=== PATIENT | male | born 1960 | race Caucasian/White ===

== ENCOUNTER 2017-02-06 12:55 | Emergency (ER) | payer SELFPAY ==
[~2017-02-06] VITALS: Ht 165.1 cm; Wt 61.5 kg
[2017-02-06] MEDS ORDERED: INSLAN SQ (13:06)
[2017-02-06] MEDS ORDERED: INSREG SQ (13:06)
[2017-02-06 13:12] LABS: GLUCOSE,POINT OF CARE 354 MG/DL (70-110)
[2017-02-06] MEDS ORDERED: CEFTAROLINE 600 MG/D5W 250 ML IV ONE (14:30)
[2017-02-06] MEDS ORDERED: INSULIN REGULAR, HUMAN 100 UNITS/ML IVP ONE (14:30)
[2017-02-06] MEDS ORDERED: SODIUM CHLORIDE 0.9% 1,000 ML IV ONE (14:30)
[2017-02-06 14:53] LABS: BASOPHILS % (AUTO) 0.8 % (0.0-2.0); EOSINOPHILS % (AUTO) 0.6 % (1.0-6.0); HEMATOCRIT 46.2 % (41-53); HEMOGLOBIN 15.3 g/dL (13.5-17.5); LYMPHOCYTES # (AUTO) 1.9 K/uL (1.0-4.8); LYMPHOCYTES % (AUTO) 16.2 % (22.0-44.0); MEAN CORPUSCULAR HGB CONC 33.1 G/dL (31.0-37.0); MEAN CORPUSCULAR VOLUME 94 fL (80-100); MONOCYTES # (AUTO) 0.5 K/uL (0.1-1.0); MONOCYTES % (AUTO) 4.6 % (2.0-9.0); NEUTROPHILS # (AUTO) 9.1 K/uL (1.8-7.7); NEUTROPHILS % (AUTO) 77.8 % (40.0-70.0); PLATELET COUNT (AUTO) 236 K/uL (150-450); RED BLOOD CELL COUNT(AUTO) 4.94 MIL/uL (4.50-5.90); RED CELL DISTRIBUTION WIDTH 13.4 % (11.5-14.5); WHITE BLOOD COUNT (AUTO) 11.7 K/uL (4.5-11.0)
[2017-02-06 15:05] LABS: ANION GAP 7 mmol/L (8-16); CALCIUM, TOTAL 8.6 mg/dL (8.8-10.5); CARBON DIOXIDE 30 mmol/L (22-29); CHLORIDE 97 mmol/L (98-107); CREATININE 0.93 mg/dL (0.60-1.30); GLOMERULAR FILTR. RATE CALC > 60 mL/min (>60); POTASSIUM 3.9 mmol/L (3.5-5.1); SODIUM SERUM 134 mmol/L (136-145); UREA NITROGEN, BLOOD 15 mg/dL (7-18)
[2017-02-06 15:11] LABS: ALANINE AMINOTRANSFERASE 52 U/L (12-78); ALBUMIN 3.1 g/dL (3.4-5.0); ASPARTATE AMINOTRANSFERASE 22 U/L (15-37); BILIRUBIN,TOTAL 0.7 mg/dL (0.1-1.0); TOTAL PROTEIN, SERUM 7.5 g/dL (6.4-8.2)
[2017-02-06 15:37] LABS: GLUCOSE,POINT OF CARE 341 MG/DL (70-110)
[2017-02-06 15:47] LABS: APPEARANCE,URINE CLEAR (CLEAR); GLUCOSE, URINE (UA) >=1000 mg/dL (NEGATIVE); KETONES,URINE NEGATIVE (NEGATIVE); LEUKOCYTE ESTERASE ,URINE NEGATIVE (NEGATIVE); OCCULT BLOOD,URINE NEGATIVE (NEGATIVE); PROTEIN,URINE NEGATIVE (NEGATIVE)
[2017-02-06 15:55] LABS: ADD UA MICROSCOPIC YES; RBC,URINE 0-2 /HPF (0-2)
[2017-02-06 15:56] LABS: SQUAMOUS EPITHELIAL CELL,UR Rare /LPF (None Seen)
[2017-02-06 16:21] LABS: GLUCOSE,POINT OF CARE 244 MG/DL (70-110)
[2017-02-06 16:42] VITALS: BP 147/82
== END 2017-02-06 16:50 | disposition home or self-care (01) ==
LOC: EMS 12:58
DX: L03.116 Cellulitis of left lower limb (principal); E11.65 Type 2 diabetes mellitus with hyperglycemia; F15.10 Other stimulant abuse, uncomplicated; F12.90 Cannabis use, unspecified, uncomplicated; F17.210 Nicotine dependence, cigarettes, uncomplicated; E11.9 Type 2 diabetes mellitus without complications; Z79.4 Long term (current) use of insulin; Z91.14 Patient's other noncompliance with medication regimen
CPT/HCPCS: 36415; 80053; 80307; 81001; 82948; 82962; 85025; 87040; 96365; 96375; 99285; 99406; J0712; J1815; J7030

== ENCOUNTER 2021-02-22 16:59 | Emergency (ER) | payer MEDICAID ==
[~2021-02-22] VITALS: Ht 170.2 cm; Wt 61.4 kg
[~2021-02-22 16:59] MED LIST: DOXY-354 PO; INSLAN SQ; INSREG SQ
[2021-02-22 17:08] VITALS: BP 168/93
[2021-02-22 17:24] LABS: GLUCOSE,POINT OF CARE 549 MG/DL (70-110)
== END 2021-02-22 18:25 | disposition left against medical advice (07) ==
LOC: EMS 17:04
DX: Z48.00 Encounter for change or removal of nonsurgical wound dressing (principal); Z53.21 Procedure and treatment not carried out due to patient leaving prior to being seen by health care provider
CPT/HCPCS: 82962

== ENCOUNTER 2021-08-19 15:15 | Emergency (ER) | payer MEDICAID ==
[~2021-08-19] VITALS: Ht 167.6 cm; Wt 63.6 kg
[2021-08-19 16:21] VITALS: BP 126/70
[2021-08-19] MEDS ORDERED: ACETAMINOPHEN 500 MG TABLET PO ONE (16:45)
[2021-08-19] MEDS ORDERED: DOXYCYCLINE HYCLATE 100 MG TABLET PO ONE (16:45)
== END 2021-08-19 17:15 | disposition home or self-care (01) ==
LOC: EMS 15:20
DX: L03.116 Cellulitis of left lower limb (principal); E11.9 Type 2 diabetes mellitus without complications; F12.90 Cannabis use, unspecified, uncomplicated; F15.90 Other stimulant use, unspecified, uncomplicated; F17.210 Nicotine dependence, cigarettes, uncomplicated; Z79.899 Other long term (current) drug therapy; Z79.4 Long term (current) use of insulin
CPT/HCPCS: 99283

== ENCOUNTER 2021-09-01 17:39 | Inpatient (IN) | payer MEDICAID ==
[~2021-09-01] VITALS: Ht 167.6 cm; Wt 72.0 kg
[2021-09-01 18:16] LABS: GLUCOMETER DEV NAME(LOC) ERT.5; GLUCOSE,POINT OF CARE 374 MG/DL (70-110)
[2021-09-01] MEDS ORDERED: 0.9% SODIUM CHLORIDE 10 ML SYRINGE IVP PRN (18:45)
[2021-09-01] MEDS ORDERED: OxyCODONE HCL/ACETAMINOPHEN 10-325 MG TABLET PO ONE (18:45)
[2021-09-01] MEDS ORDERED: SODIUM CHLORIDE 0.9% 1,750 ML IV ONE (18:45)
[2021-09-01 19:05] LABS: BASOPHILS % (AUTO) 0.5 % (0.0-2.0); EOSINOPHILS % (AUTO) 0.2 % (1.0-6.0); HEMATOCRIT 43.8 % (41-53); HEMOGLOBIN 14.1 g/dL (13.5-17.5); LYMPHOCYTES # (AUTO) 1.2 K/uL (1.0-4.8); LYMPHOCYTES % (AUTO) 11.7 % (22.0-44.0); MEAN CORPUSCULAR HEMOGLOBIN 31.3 pg (26.0-34.0); MEAN CORPUSCULAR HGB CONC 32.1 G/dL (31.0-37.0); MEAN CORPUSCULAR VOLUME 97 fL (80-100); MONOCYTES # (AUTO) 0.3 K/uL (0.1-1.0); MONOCYTES % (AUTO) 2.5 % (2.0-9.0); NEUTROPHILS # (AUTO) 8.9 K/uL (1.8-7.7); NEUTROPHILS % (AUTO) 85.1 % (40.0-70.0); PLATELET COUNT (AUTO) 386 K/uL (150-450); RED BLOOD CELL COUNT(AUTO) 4.49 MIL/uL (4.50-5.90); RED CELL DISTRIBUTION WIDTH 16.2 % (11.5-14.5)
[2021-09-01 19:16] LABS: INR 1.1 (0.9-1.1); PROTHROMBIN TIME 11.4 SEC (9.4-11.6)
[2021-09-01 19:25] LABS: LACTIC ACID 1.6 mmol/L (0.4-2.0)
[2021-09-01 19:38] LABS: ALANINE AMINOTRANSFERASE 29 U/L (12-78); ALBUMIN 2.7 g/dL (3.4-5.0); ALKALINE PHOSPHATASE 118 U/L (46-116); ANION GAP 5 mmol/L (8-16); ASPARTATE AMINOTRANSFERASE 27 U/L (15-37); BILIRUBIN,TOTAL 0.6 mg/dL (0.1-1.0); CALCIUM, TOTAL 8.4 mg/dL (8.8-10.5); CARBON DIOXIDE 31 mmol/L (22-29); CHLORIDE 101 mmol/L (98-107); CREATINE KINASE, TOTAL ONLY 83 U/L (39-308); CREATININE 0.97 mg/dL (0.60-1.30); GLOMERULAR FILTR. RATE CALC > 60 mL/min (>60); POTASSIUM 5.1 mmol/L (3.5-5.1); SODIUM SERUM 137 mmol/L (136-145); TOTAL PROTEIN, SERUM 8.4 g/dL (6.4-8.2); UREA NITROGEN, BLOOD 16 mg/dL (7-18)
[2021-09-01 19:40] LABS: GLUCOSE,RANDOM 411 mg/dL (70-110)
[2021-09-01] MEDS ORDERED: INSULIN REGULAR, HUMAN 100 UNITS/ML IVP ONE (20:00)
[2021-09-01 21:12] LABS: GLUCOMETER DEV NAME(LOC) ERT.5; GLUCOSE,POINT OF CARE 283 MG/DL (70-110)
[2021-09-01 21:26] LABS: D-DIMER 3.18 mg/L FEU (0.00-0.50)
[2021-09-01] MEDS ORDERED: SODIUM CHLORIDE 0.9% 100 ML ONE (21:40)
[2021-09-01] MEDS ORDERED: IOHEXOL 350 MG/ML 100 ML VIAL ONE (21:41)
[2021-09-01] MEDS ORDERED: ACETAMINOPHEN 325 MG TABLET PO PRN (22:00)
[2021-09-01] MEDS: OXYGEN THERAPY IH SCH (22:00)
[2021-09-01] MEDS ORDERED: ONDANSETRON HCL 4 MG/2 ML VIAL IVP PRN (22:00)
[2021-09-01 22:10] LABS: B-TYPE NATRIURETIC PEPTIDE 2500 pg/mL (0-100)
[2021-09-01 22:23] LABS: COVID AG,FIA SOURCE NASOPHARYNGEAL
[2021-09-01] MEDS ORDERED: FUROSEMIDE 40 MG/4 ML VIAL IVP ONE (23:30)
[2021-09-02] MEDS ORDERED: ONDANSETRON HCL 4 MG/2 ML VIAL IVP PRN (00:15)
[2021-09-02] MEDS ORDERED: MORPHINE SULFATE 2 MG/ML SYRINGE IVP PRN (00:15)
[2021-09-02] MEDS ORDERED: ACETAMINOPHEN 325 MG TABLET PO PRN (00:15)
[2021-09-02] MEDS ORDERED: BISACODYL 10 MG RECTAL RECTAL SUPPOSITORY PR PRN (00:15)
[2021-09-02 00:20] VITALS: BP 126/78
[2021-09-02 00:57] LABS: APPEARANCE,URINE CLEAR (CLEAR); BILIRUBIN,URINE NEGATIVE (NEGATIVE); GLUCOSE, URINE (UA) >=1000 mg/dL (NEGATIVE); KETONES,URINE NEGATIVE (NEGATIVE); LEUKOCYTE ESTERASE ,URINE NEGATIVE (NEGATIVE); NITRATE,URINE NEGATIVE (NEGATIVE); OCCULT BLOOD,URINE NEGATIVE (NEGATIVE); PROTEIN,URINE POS 1+ (NEGATIVE); UROBILINOGEN,URINE 0.2 mg/dL (<=1.0)
[2021-09-02 00:59] LABS: RBC,URINE None Seen /HPF (0-2)
[2021-09-02 01:00] LABS: BACTERIA,URINE Rare /HPF (None Seen); WBC,URINE 0-2 /HPF (0-5)
[2021-09-02 05:11] VITALS: BP 127/75
[2021-09-02] MEDS ORDERED: DEXTROSE 50%-WATER 25 GM/50 ML SYRINGE IVP PRN (05:45)
[2021-09-02] MEDS: INSULIN LISPRO 100 UNITS/ML SQ PRN ×4 (06:03→21:20)
[2021-09-02 07:33] VITALS: BP 124/78
[2021-09-02] MEDS: FUROSEMIDE 20 MG/2 ML VIAL IVP SCH ×2 (08:10→21:15)
[2021-09-02] MEDS: ASPIRIN 81 MG DR TABLET PO SCH (08:10)
[2021-09-02] MEDS: DOCUSATE SODIUM 100 MG CAPSULE PO SCH ×2 (08:10→21:15)
[2021-09-02] MEDS: CARVEDILOL 6.25 MG TABLET PO SCH ×2 (08:10→21:15)
[2021-09-02] MEDS: PANTOPRAZOLE SODIUM 40 MG DR TABLET PO SCH (08:10)
[2021-09-02] MEDS: LISINOPRIL 5 MG TABLET PO SCH (08:10)
[2021-09-02] MEDS: HEPARIN SODIUM,PORCINE 5,000 UNITS/ML VIAL SQ SCH ×3 (08:10→23:39)
[2021-09-02] MEDS: OXYGEN THERAPY IH SCH ×2 (08:11→20:00)
[2021-09-02 10:57] VITALS: BP 107/62
[2021-09-02 15:24] VITALS: BP 120/76
[2021-09-02] MEDS ORDERED: VANCOMYCIN HCL 1 GM/D5% WATER 200 ML IV ONE (18:00)
[2021-09-02] MEDS ORDERED: SODIUM CHLORIDE 0.9% 1,000 ML ONE (18:26)
[2021-09-02 19:08] LABS: GLUCOMETER DEV NAME(LOC) 5S.2B; GLUCOSE,POINT OF CARE 270 MG/DL (70-110)
[2021-09-02 20:07] VITALS: BP 106/61
[2021-09-02] MEDS: HYDROCODONE/ACETAMINOPHEN 5-325 MG TABLET PO PRN (21:15)
[2021-09-02] MEDS: INSULIN GLARGINE,HUM.REC.ANLOG 100 UNITS/ML SQ SCH (21:19)
[2021-09-02 21:49] LABS: GLUCOMETER DEV NAME(LOC) 5S.1; GLUCOSE,POINT OF CARE 260 MG/DL (70-110)
[2021-09-03 00:14] VITALS: BP 126/70
[2021-09-03 05:52] VITALS: BP 120/51
[2021-09-03 06:17] LABS: GLUCOMETER DEV NAME(LOC) 5N.3; GLUCOSE,POINT OF CARE 311 MG/DL (70-110)
[2021-09-03 06:17] LABS: GLUCOMETER DEV NAME(LOC) 5N.3; GLUCOSE,POINT OF CARE 224 MG/DL (70-110)
[2021-09-03] MEDS: INSULIN LISPRO 100 UNITS/ML SQ PRN ×4 (06:38→21:01)
[2021-09-03 07:02] LABS: ANION GAP 4 mmol/L (8-16); CALCIUM, TOTAL 7.9 mg/dL (8.8-10.5); CARBON DIOXIDE 30 mmol/L (22-29); CHLORIDE 106 mmol/L (98-107); CREATININE 0.91 mg/dL (0.60-1.30); GLOMERULAR FILTR. RATE CALC > 60 mL/min (>60); GLUCOSE,RANDOM 174 mg/dL (70-110); POTASSIUM 4.1 mmol/L (3.5-5.1); SODIUM SERUM 140 mmol/L (136-145); UREA NITROGEN, BLOOD 18 mg/dL (7-18)
[2021-09-03 07:14] LABS: VANCOMYCIN,RANDOM 7.2 mcg/mL (25.0-50.0)
[2021-09-03 07:35] VITALS: BP 108/65
[2021-09-03] MEDS: OXYGEN THERAPY IH SCH ×2 (08:00→19:51)
[2021-09-03 08:03] LABS: GLUCOMETER DEV NAME(LOC) 5S.2B; GLUCOSE,POINT OF CARE 152 MG/DL (70-110)
[2021-09-03] MEDS: CARVEDILOL 6.25 MG TABLET PO SCH ×2 (09:00→21:02)
[2021-09-03] MEDS: DOCUSATE SODIUM 100 MG CAPSULE PO SCH ×2 (09:13→21:01)
[2021-09-03] MEDS: VANCOMYCIN HCL 1 GM/D5% WATER 200 ML IV SCH ×2 (09:13→21:00)
[2021-09-03] MEDS: FUROSEMIDE 20 MG/2 ML VIAL IVP SCH ×2 (09:13→21:01)
[2021-09-03] MEDS: PANTOPRAZOLE SODIUM 40 MG DR TABLET PO SCH (09:13)
[2021-09-03] MEDS: LISINOPRIL 5 MG TABLET PO SCH (09:13)
[2021-09-03] MEDS: ASPIRIN 81 MG DR TABLET PO SCH (09:13)
[2021-09-03] MEDS: HEPARIN SODIUM,PORCINE 5,000 UNITS/ML VIAL SQ SCH ×2 (09:13→16:19)
[2021-09-03 12:07] VITALS: BP 122/66
[2021-09-03 13:09] LABS: GLUCOMETER DEV NAME(LOC) 5S.2B; GLUCOSE,POINT OF CARE 298 MG/DL (70-110)
[2021-09-03] MEDS ORDERED: CEFEPIME HCL 2 GM in DEXTROSE 5%-WATER 50 ML IV SCH (14:00)
[2021-09-03] MEDS ORDERED: INFLUENZA VIRUS VACCINE QVS 2021-22 (6MO+)/PF 60 MCG/0.5 ML SYRINGE IM. ONE (14:15)
[2021-09-03] MEDS ORDERED: PNEUMOCOCCAL VACCINE POLYVALENT 0.5 ML VIAL [PPSV23] IM. ONE (14:15)
[2021-09-03 16:00] VITALS: BP 157/72
[2021-09-03] MEDS: PIPERACILLIN/TAZO 3.375 GM/D5W 50 ML IV SCH ×2 (16:20→20:00)
[2021-09-03 19:10] LABS: GLUCOMETER DEV NAME(LOC) 5S.1; GLUCOSE,POINT OF CARE 343 MG/DL (70-110)
[2021-09-03 20:05] VITALS: BP 145/69
[2021-09-03] MEDS: INSULIN GLARGINE,HUM.REC.ANLOG 100 UNITS/ML SQ SCH (21:00)
[2021-09-03] MEDS: HYDROCODONE/ACETAMINOPHEN 5-325 MG TABLET PO PRN (21:09)
[2021-09-04] VITALS (7 sets, daily range): BP systolic 100–130; BP diastolic 43–75
[2021-09-04] MEDS: HEPARIN SODIUM,PORCINE 5,000 UNITS/ML VIAL SQ SCH ×3 (00:22→15:30)
[2021-09-04] MEDS: PIPERACILLIN/TAZO 3.375 GM/D5W 50 ML IV SCH ×4 (01:25→20:29)
[2021-09-04] MEDS: INSULIN LISPRO 100 UNITS/ML SQ PRN ×3 (06:07→17:46)
[2021-09-04 06:50] LABS: EOSINOPHILS % (AUTO) 1.5 % (1.0-6.0); HEMATOCRIT 34.2 % (41-53); HEMOGLOBIN 11.1 g/dL (13.5-17.5); LYMPHOCYTES # (AUTO) 1.3 K/uL (1.0-4.8); LYMPHOCYTES % (AUTO) 18.9 % (22.0-44.0); MEAN CORPUSCULAR HEMOGLOBIN 30.5 pg (26.0-34.0); MEAN CORPUSCULAR HGB CONC 32.3 G/dL (31.0-37.0); MEAN CORPUSCULAR VOLUME 94 fL (80-100); MONOCYTES # (AUTO) 0.4 K/uL (0.1-1.0); NEUTROPHILS # (AUTO) 5.2 K/uL (1.8-7.7); NEUTROPHILS % (AUTO) 73.6 % (40.0-70.0); PLATELET COUNT (AUTO) 274 K/uL (150-450); RED BLOOD CELL COUNT(AUTO) 3.64 MIL/uL (4.50-5.90); RED CELL DISTRIBUTION WIDTH 15.5 % (11.5-14.5)
[2021-09-04 07:02] LABS: ANION GAP 11 mmol/L (8-16); CALCIUM, TOTAL 7.8 mg/dL (8.8-10.5); CARBON DIOXIDE 31 mmol/L (22-29); CHLORIDE 101 mmol/L (98-107); CREATININE 0.89 mg/dL (0.60-1.30); GLOMERULAR FILTR. RATE CALC > 60 mL/min (>60); GLUCOSE,RANDOM 252 mg/dL (70-110); POTASSIUM 3.9 mmol/L (3.5-5.1); SODIUM SERUM 143 mmol/L (136-145); UREA NITROGEN, BLOOD 20 mg/dL (7-18); VANCOMYCIN,RANDOM 18.1 mcg/mL (25.0-50.0)
[2021-09-04 07:47] LABS: GLUCOMETER DEV NAME(LOC) 5S.2B; GLUCOSE,POINT OF CARE 252 MG/DL (70-110)
[2021-09-04] MEDS: OXYGEN THERAPY IH SCH ×2 (08:00→20:00)
[2021-09-04] MEDS: ASPIRIN 81 MG DR TABLET PO SCH (08:27)
[2021-09-04] MEDS: CARVEDILOL 6.25 MG TABLET PO SCH (08:28)
[2021-09-04] MEDS: PANTOPRAZOLE SODIUM 40 MG DR TABLET PO SCH (08:28)
[2021-09-04] MEDS: LISINOPRIL 5 MG TABLET PO SCH (08:28)
[2021-09-04] MEDS: FUROSEMIDE 20 MG/2 ML VIAL IVP SCH (08:28)
[2021-09-04] MEDS: DOCUSATE SODIUM 100 MG CAPSULE PO SCH ×2 (08:31→21:56)
[2021-09-04] MEDS: VANCOMYCIN HCL 1 GM/D5% WATER 200 ML IV SCH ×2 (10:13→21:56)
[2021-09-04 12:00] LABS: GLUCOMETER DEV NAME(LOC) 5S.2B; GLUCOSE,POINT OF CARE 258 MG/DL (70-110)
[2021-09-04] MEDS ORDERED: DEXTROSE 50%-WATER 25 GM/50 ML SYRINGE IVP PRN (12:00)
[2021-09-04] MEDS ORDERED: SODIUM CHLORIDE 0.9% 100 ML ONE (12:29)
[2021-09-04] MEDS ORDERED: IOHEXOL 350 MG/ML 150 ML VIAL ONE (12:29)
[2021-09-04 14:28] LABS: MAGNESIUM 1.7 mg/dL (1.80-2.40); POTASSIUM 3.6 mmol/L (3.5-5.1)
[2021-09-04 15:23] LABS: C-REACTIVE PROTEIN QUANT 2.75 mg/dL (0.00-0.30)
[2021-09-04] MEDS: SPIRONOLACTONE 25 MG TABLET PO SCH (15:27)
[2021-09-04 15:28] LABS: SPECIMENTYPE,BODY FLUID THORACENTESIS
[2021-09-04] MEDS ORDERED: POTASSIUM CHLORIDE 20 MEQ ER TABLET PO PRN (15:45)
[2021-09-04] MEDS ORDERED: MAGNESIUM SULFATE 2 GM/WATER 50 ML IV PRN (15:45)
[2021-09-04] MEDS ORDERED: POTASSIUM CHL 10 MEQ/WATER 50 ML IV PRN (15:45)
[2021-09-04] MEDS ORDERED: MAGNESIUM SULFATE 4 GM/WATER 100 ML IV PRN (15:45)
[2021-09-04] MEDS: MAGNESIUM OXIDE 400 MG TABLET PO PRN (15:52)
[2021-09-04 17:41] LABS: GLUCOMETER DEV NAME(LOC) 5S.1; GLUCOSE,POINT OF CARE 213 MG/DL (70-110)
[2021-09-04 17:50] LABS: ABG A-A DIFF O2 46.6 mmHg (10-20.0); ABG BASE EXCESS 2.8 mmol/L (-2.0-3.0); ABG METHEMOGLOBIN 0.3 % (0.0-1.5); ABG OXYGEN CONTENT 17.5 mL/dL (15.0-23.0); ABG OXYGEN SATURATION 91.9 % (95.0-98.0); ABG OXYHEMOGLOBIN 90.7 % (94.0-100.0); ABG PCO2 36 mmHg (35-45); ABG PH 7.479 (7.35-7.450); ABG TOTAL HEMOGLOBIN 13.7 G/dL (12.0-18.0); PO2, ARTERIAL BG 59.8 mmHg (79.0-87.0); SOURCE, BLOOD GAS ARTERIAL; TEMPERATURE, FAHRENHEIT, BG 98.6 FAHREN (96.0-98.6)
[2021-09-04 17:51] LABS: O2 DEVICE,BLOOD GAS ROOM AIR (ROOM AIR); SITE, BLOOD GAS RT RADIAL
[2021-09-04 18:31] LABS: APPEARANCE,SPUN,BODY FLUID CLEAR (CLEAR); APPEARANCE,UNSPUN,BODY FLUID CLOUDY (CLEAR); COLOR,BODY FLUID YELLOW (LT YELLOW); LYMPHOCYTES,BODY FLUID 75 %; NEUTROPHILS,BODY FLUID 16 %; TOTAL VOLUME,BODY FLUID 2220 mL; WBC, BODY FLUID 243 /cu. mm.
[2021-09-04 18:32] LABS: BASOPHILS,BODY FLUID 0 %; EOSINOPHILS,BF (ANAL) 0 %; MONOCYTES,BODY FLUID 2 %; OTHER CELLS,BODY FLUID 7
[2021-09-04 18:49] LABS: AMPHET/METH SCREEN,URINE NEGATIVE (NEGATIVE); BARBITURATE SCREEN, URINE NEGATIVE (NEGATIVE); BENZODIAZEPINES SCREEN,URINE NEGATIVE (NEGATIVE); CANNABINOID SCREEN,URINE NEGATIVE (NEGATIVE); COCAINE SCREEN,URINE NEGATIVE (NEGATIVE); METHADONE SCREEN, URINE NEGATIVE (NEGATIVE); OPIATE SCREEN,URINE POSITIVE (NEGATIVE); PHENCYCLIDINE SCREEN,URINE NEGATIVE (NEGATIVE)
[2021-09-04] MEDS ORDERED: FUROSEMIDE 40 MG/4 ML VIAL IVP SCH (21:00)
[2021-09-04] MEDS: HYDROCODONE/ACETAMINOPHEN 5-325 MG TABLET PO PRN (21:56)
[2021-09-04] MEDS: CARVEDILOL 12.5 MG TABLET PO SCH (21:56)
[2021-09-04] MEDS: INSULIN GLARGINE,HUM.REC.ANLOG 100 UNITS/ML SQ SCH (21:58)
[2021-09-05] VITALS (7 sets, daily range): BP systolic 96–138; BP diastolic 42–74
[2021-09-05] MEDS: HEPARIN SODIUM,PORCINE 5,000 UNITS/ML VIAL SQ SCH ×4 (00:33→23:59)
[2021-09-05] MEDS: PIPERACILLIN/TAZO 3.375 GM/D5W 50 ML IV SCH ×4 (01:26→22:11)
[2021-09-05 05:27] LABS: GLUCOMETER DEV NAME(LOC) 5N.3; GLUCOSE,POINT OF CARE 239 MG/DL (70-110)
[2021-09-05 05:27] LABS: GLUCOMETER DEV NAME(LOC) 5N.3; GLUCOSE,POINT OF CARE 98 MG/DL (70-110)
[2021-09-05 05:37] LABS: GLUCOMETER DEV NAME(LOC) 5S.1; GLUCOSE,POINT OF CARE 163 MG/DL (70-110)
[2021-09-05] MEDS: INSULIN LISPRO 100 UNITS/ML SQ PRN ×4 (06:16→22:14)
[2021-09-05] MEDS: OXYGEN THERAPY IH SCH ×2 (08:00→20:00)
[2021-09-05] MEDS: CARVEDILOL 12.5 MG TABLET PO SCH ×2 (09:00→22:11)
[2021-09-05 09:05] LABS: BASOPHILS % (AUTO) 0.6 % (0.0-2.0); EOSINOPHILS % (AUTO) 0.5 % (1.0-6.0); HEMOGLOBIN 12.5 g/dL (13.5-17.5); LYMPHOCYTES # (AUTO) 2.2 K/uL (1.0-4.8); MEAN CORPUSCULAR HEMOGLOBIN 30.3 pg (26.0-34.0); MEAN CORPUSCULAR HGB CONC 32.1 G/dL (31.0-37.0); MEAN CORPUSCULAR VOLUME 94 fL (80-100); MONOCYTES # (AUTO) 0.4 K/uL (0.1-1.0); MONOCYTES % (AUTO) 3.6 % (2.0-9.0); NEUTROPHILS % (AUTO) 76.3 % (40.0-70.0); PLATELET COUNT (AUTO) 316 K/uL (150-450); RED BLOOD CELL COUNT(AUTO) 4.13 MIL/uL (4.50-5.90); RED CELL DISTRIBUTION WIDTH 15.6 % (11.5-14.5)
[2021-09-05 09:19] LABS: ALANINE AMINOTRANSFERASE 19 U/L (12-78); ALBUMIN 1.5 g/dL (3.4-5.0); ALKALINE PHOSPHATASE 68 U/L (46-116); ANION GAP 1 mmol/L (8-16); ASPARTATE AMINOTRANSFERASE 20 U/L (15-37); BILIRUBIN,TOTAL 0.5 mg/dL (0.1-1.0); CALCIUM, TOTAL 7.5 mg/dL (8.8-10.5); CARBON DIOXIDE 32 mmol/L (22-29); CHLORIDE 105 mmol/L (98-107); CREATININE 1.08 mg/dL (0.60-1.30); GLOMERULAR FILTR. RATE CALC > 60 mL/min (>60); GLUCOSE,RANDOM 193 mg/dL (70-110); POTASSIUM 4.4 mmol/L (3.5-5.1); SODIUM SERUM 138 mmol/L (136-145); TOTAL PROTEIN, SERUM 5.6 g/dL (6.4-8.2); UREA NITROGEN, BLOOD 26 mg/dL (7-18)
[2021-09-05] MEDS: ASPIRIN 81 MG DR TABLET PO SCH (10:30)
[2021-09-05] MEDS: DOCUSATE SODIUM 100 MG CAPSULE PO SCH ×2 (10:30→22:10)
[2021-09-05] MEDS: PANTOPRAZOLE SODIUM 40 MG DR TABLET PO SCH (10:31)
[2021-09-05] MEDS: VANCOMYCIN HCL 1 GM/D5% WATER 200 ML IV SCH ×2 (11:27→22:11)
[2021-09-05] MEDS: SPIRONOLACTONE 25 MG TABLET PO SCH (12:27)
[2021-09-05 12:42] LABS: GLUCOMETER DEV NAME(LOC) 5S.2B; GLUCOSE,POINT OF CARE 193 MG/DL (70-110)
[2021-09-05 20:40] LABS: GLUCOMETER DEV NAME(LOC) 5S.1; GLUCOSE,POINT OF CARE 287 MG/DL (70-110)
[2021-09-05 20:40] LABS: GLUCOMETER DEV NAME(LOC) 5S.1; GLUCOSE,POINT OF CARE 258 MG/DL (70-110)
[2021-09-05] MEDS: MAGNESIUM HYDROXIDE SUSPENSION 30 ML UDCUP PO PRN (22:10)
[2021-09-05] MEDS: HYDROCODONE/ACETAMINOPHEN 5-325 MG TABLET PO PRN (22:11)
[2021-09-05] MEDS: INSULIN GLARGINE,HUM.REC.ANLOG 100 UNITS/ML SQ SCH (22:13)
[2021-09-06] MEDS: PIPERACILLIN/TAZO 3.375 GM/D5W 50 ML IV SCH ×4 (02:18→20:33)
[2021-09-06 05:30] VITALS: BP 121/66
[2021-09-06 06:27] LABS: GLUCOMETER DEV NAME(LOC) 5S.1; GLUCOSE,POINT OF CARE 261 MG/DL (70-110)
[2021-09-06 07:07] LABS: ANION GAP 1 mmol/L (8-16); CALCIUM, TOTAL 7.5 mg/dL (8.8-10.5); CARBON DIOXIDE 32 mmol/L (22-29); CHLORIDE 105 mmol/L (98-107); CREATININE 0.97 mg/dL (0.60-1.30); GLOMERULAR FILTR. RATE CALC > 60 mL/min (>60); GLUCOSE,RANDOM 225 mg/dL (70-110); LACTATE DEHYDROGENASE 178 U/L (85-227); POTASSIUM 4.6 mmol/L (3.5-5.1); SODIUM SERUM 138 mmol/L (136-145); UREA NITROGEN, BLOOD 25 mg/dL (7-18)
[2021-09-06] MEDS: INSULIN LISPRO 100 UNITS/ML SQ PRN ×4 (07:11→20:41)
[2021-09-06] MEDS: OXYGEN THERAPY IH SCH ×2 (08:00→20:00)
[2021-09-06 08:28] VITALS: BP 117/58
[2021-09-06] MEDS: HEPARIN SODIUM,PORCINE 5,000 UNITS/ML VIAL SQ SCH ×2 (08:48→17:04)
[2021-09-06] MEDS: SPIRONOLACTONE 25 MG TABLET PO SCH (09:44)
[2021-09-06] MEDS: DOCUSATE SODIUM 100 MG CAPSULE PO SCH ×2 (09:44→20:33)
[2021-09-06] MEDS: SACUBITRIL/VALSARTAN 24-26 MG TABLET PO SCH ×2 (09:44→20:42)
[2021-09-06] MEDS: ATORVASTATIN CALCIUM 10 MG TABLET PO SCH (09:44)
[2021-09-06] MEDS: PANTOPRAZOLE SODIUM 40 MG DR TABLET PO SCH (09:45)
[2021-09-06] MEDS: CARVEDILOL 12.5 MG TABLET PO SCH ×2 (09:45→20:35)
[2021-09-06] MEDS: ASPIRIN 81 MG DR TABLET PO SCH (09:45)
[2021-09-06] MEDS: FUROSEMIDE 40 MG/4 ML VIAL IVP SCH (09:49)
[2021-09-06] MEDS: VANCOMYCIN HCL 1 GM/D5% WATER 200 ML IV SCH ×2 (09:52→20:33)
[2021-09-06 11:39] VITALS: BP 115/62
[2021-09-06 15:52] VITALS: BP 116/57
[2021-09-06 20:00] VITALS: BP 119/63
[2021-09-06 20:19] LABS: GLUCOMETER DEV NAME(LOC) 5S.1; GLUCOSE,POINT OF CARE 311 MG/DL (70-110)
[2021-09-06] MEDS: MAGNESIUM HYDROXIDE SUSPENSION 30 ML UDCUP PO PRN (20:33)
[2021-09-06] MEDS: HYDROCODONE/ACETAMINOPHEN 5-325 MG TABLET PO PRN (20:34)
[2021-09-06] MEDS: INSULIN GLARGINE,HUM.REC.ANLOG 100 UNITS/ML SQ SCH (20:40)
[2021-09-06 23:55] VITALS: BP 107/53
[2021-09-07] MEDS: HEPARIN SODIUM,PORCINE 5,000 UNITS/ML VIAL SQ SCH ×4 (00:58→23:47)
[2021-09-07] MEDS: PIPERACILLIN/TAZO 3.375 GM/D5W 50 ML IV SCH ×4 (02:54→20:20)
[2021-09-07 04:48] VITALS: BP 106/52
[2021-09-07 06:19] LABS: GLUCOMETER DEV NAME(LOC) 5N.3; GLUCOSE,POINT OF CARE 313 MG/DL (70-110)
[2021-09-07 06:19] LABS: GLUCOMETER DEV NAME(LOC) 5N.3; GLUCOSE,POINT OF CARE 177 MG/DL (70-110)
[2021-09-07 06:19] LABS: GLUCOMETER DEV NAME(LOC) 5N.3; GLUCOSE,POINT OF CARE 318 MG/DL (70-110)
[2021-09-07 06:57] LABS: BASOPHILS % (AUTO) 0.8 % (0.0-2.0); EOSINOPHILS % (AUTO) 2.1 % (1.0-6.0); HEMATOCRIT 36.1 % (41-53); HEMOGLOBIN 11.7 g/dL (13.5-17.5); LYMPHOCYTES # (AUTO) 2.3 K/uL (1.0-4.8); LYMPHOCYTES % (AUTO) 24.3 % (22.0-44.0); MEAN CORPUSCULAR HEMOGLOBIN 30.4 pg (26.0-34.0); MEAN CORPUSCULAR HGB CONC 32.5 G/dL (31.0-37.0); MEAN CORPUSCULAR VOLUME 94 fL (80-100); MONOCYTES # (AUTO) 0.6 K/uL (0.1-1.0); MONOCYTES % (AUTO) 5.8 % (2.0-9.0); NEUTROPHILS # (AUTO) 6.4 K/uL (1.8-7.7); PLATELET COUNT (AUTO) 275 K/uL (150-450); RED BLOOD CELL COUNT(AUTO) 3.86 MIL/uL (4.50-5.90); RED CELL DISTRIBUTION WIDTH 15.5 % (11.5-14.5)
[2021-09-07 07:09] LABS: ALANINE AMINOTRANSFERASE 20 U/L (12-78); ALBUMIN 1.5 g/dL (3.4-5.0); ALKALINE PHOSPHATASE 62 U/L (46-116); ANION GAP 5 mmol/L (8-16); ASPARTATE AMINOTRANSFERASE 26 U/L (15-37); BILIRUBIN,TOTAL 0.4 mg/dL (0.1-1.0); CALCIUM, TOTAL 7.5 mg/dL (8.8-10.5); CARBON DIOXIDE 31 mmol/L (22-29); CHLORIDE 101 mmol/L (98-107); CREATININE 0.88 mg/dL (0.60-1.30); GLOMERULAR FILTR. RATE CALC > 60 mL/min (>60); GLUCOSE,RANDOM 209 mg/dL (70-110); POTASSIUM 4.2 mmol/L (3.5-5.1); SODIUM SERUM 137 mmol/L (136-145); TOTAL PROTEIN, SERUM 5.6 g/dL (6.4-8.2); UREA NITROGEN, BLOOD 22 mg/dL (7-18); VANCOMYCIN,RANDOM 22.7 mcg/mL (25.0-50.0)
[2021-09-07 07:25] VITALS: BP 102/48
[2021-09-07] MEDS: OXYGEN THERAPY IH SCH ×2 (08:00→20:00)
[2021-09-07] MEDS: VANCOMYCIN HCL 1 GM/D5% WATER 200 ML IV SCH (08:00)
[2021-09-07] MEDS: SPIRONOLACTONE 25 MG TABLET PO SCH (08:44)
[2021-09-07] MEDS: FUROSEMIDE 40 MG/4 ML VIAL IVP SCH (08:44)
[2021-09-07] MEDS: DOCUSATE SODIUM 100 MG CAPSULE PO SCH ×2 (08:44→20:19)
[2021-09-07] MEDS: CARVEDILOL 12.5 MG TABLET PO SCH ×2 (08:49→20:22)
[2021-09-07] MEDS: ASPIRIN 81 MG DR TABLET PO SCH (08:49)
[2021-09-07] MEDS: ATORVASTATIN CALCIUM 10 MG TABLET PO SCH (08:50)
[2021-09-07] MEDS: PANTOPRAZOLE SODIUM 40 MG DR TABLET PO SCH (08:50)
[2021-09-07] MEDS: SACUBITRIL/VALSARTAN 24-26 MG TABLET PO SCH ×2 (08:50→20:19)
[2021-09-07] MEDS: INSULIN LISPRO 100 UNITS/ML SQ PRN ×3 (11:49→20:35)
[2021-09-07 12:40] VITALS: BP 120/56
[2021-09-07 12:41] LABS: GLUCOMETER DEV NAME(LOC) 5N.3; GLUCOSE,POINT OF CARE 168 MG/DL (70-110)
[2021-09-07 16:40] VITALS: BP 122/65
[2021-09-07] MEDS ORDERED: SODIUM CL IRRIG SOLN BOTTLE 250 ML IRRIG ONE (17:25)
[2021-09-07] MEDS: HYDROCODONE/ACETAMINOPHEN 5-325 MG TABLET PO PRN ×2 (17:37→20:19)
[2021-09-07 18:25] LABS: GLUCOMETER DEV NAME(LOC) 5N.3; GLUCOSE,POINT OF CARE 247 MG/DL (70-110)
[2021-09-07 19:43] VITALS: BP 128/71
[2021-09-07] MEDS: INSULIN GLARGINE,HUM.REC.ANLOG 100 UNITS/ML SQ SCH (20:35)
[2021-09-07] MEDS: VANCOMYCIN HCL 750 MG in DEXTROSE 5%-WATER 250 ML IV SCH (21:26)
[2021-09-08 00:18] VITALS: BP 106/54
[2021-09-08] MEDS: PIPERACILLIN/TAZO 3.375 GM/D5W 50 ML IV SCH ×4 (01:13→20:37)
[2021-09-08] MEDS: HYDROCODONE/ACETAMINOPHEN 5-325 MG TABLET PO PRN ×2 (02:23→20:38)
[2021-09-08 04:57] VITALS: BP 110/60
[2021-09-08] MEDS: INSULIN LISPRO 100 UNITS/ML SQ PRN ×3 (06:04→20:45)
[2021-09-08 07:15] LABS: BASOPHILS % (AUTO) 1.8 % (0.0-2.0); EOSINOPHILS % (AUTO) 2.7 % (1.0-6.0); HEMATOCRIT 35.5 % (41-53); HEMOGLOBIN 11.5 g/dL (13.5-17.5); LYMPHOCYTES # (AUTO) 1.9 K/uL (1.0-4.8); LYMPHOCYTES % (AUTO) 24.1 % (22.0-44.0); MEAN CORPUSCULAR HEMOGLOBIN 30.2 pg (26.0-34.0); MEAN CORPUSCULAR HGB CONC 32.5 G/dL (31.0-37.0); MEAN CORPUSCULAR VOLUME 93 fL (80-100); MONOCYTES # (AUTO) 0.4 K/uL (0.1-1.0); MONOCYTES % (AUTO) 5.7 % (2.0-9.0); NEUTROPHILS # (AUTO) 5.1 K/uL (1.8-7.7); NEUTROPHILS % (AUTO) 65.7 % (40.0-70.0); PLATELET COUNT (AUTO) 280 K/uL (150-450); RED BLOOD CELL COUNT(AUTO) 3.82 MIL/uL (4.50-5.90); RED CELL DISTRIBUTION WIDTH 15.4 % (11.5-14.5)
[2021-09-08 07:32] LABS: ALANINE AMINOTRANSFERASE 27 U/L (12-78); ALBUMIN 1.6 g/dL (3.4-5.0); ALKALINE PHOSPHATASE 79 U/L (46-116); ANION GAP 3 mmol/L (8-16); ASPARTATE AMINOTRANSFERASE 32 U/L (15-37); BILIRUBIN,TOTAL 0.3 mg/dL (0.1-1.0); CALCIUM, TOTAL 7.5 mg/dL (8.8-10.5); CARBON DIOXIDE 33 mmol/L (22-29); CHLORIDE 102 mmol/L (98-107); CREATININE 0.99 mg/dL (0.60-1.30); GLOMERULAR FILTR. RATE CALC > 60 mL/min (>60); GLUCOSE,RANDOM 202 mg/dL (70-110); POTASSIUM 3.7 mmol/L (3.5-5.1); SODIUM SERUM 138 mmol/L (136-145); TOTAL PROTEIN, SERUM 5.4 g/dL (6.4-8.2); UREA NITROGEN, BLOOD 22 mg/dL (7-18)
[2021-09-08 07:49] VITALS: BP 101/49
[2021-09-08] MEDS: VANCOMYCIN HCL 750 MG in DEXTROSE 5%-WATER 250 ML IV SCH ×2 (08:00→21:23)
[2021-09-08] MEDS: DOCUSATE SODIUM 100 MG CAPSULE PO SCH ×2 (08:10→20:37)
[2021-09-08] MEDS: FUROSEMIDE 40 MG/4 ML VIAL IVP SCH (08:10)
[2021-09-08] MEDS: ASPIRIN 81 MG DR TABLET PO SCH (08:11)
[2021-09-08] MEDS: SACUBITRIL/VALSARTAN 24-26 MG TABLET PO SCH ×2 (08:11→20:37)
[2021-09-08] MEDS: PANTOPRAZOLE SODIUM 40 MG DR TABLET PO SCH (08:11)
[2021-09-08] MEDS: CARVEDILOL 12.5 MG TABLET PO SCH ×2 (08:11→20:37)
[2021-09-08] MEDS: HEPARIN SODIUM,PORCINE 5,000 UNITS/ML VIAL SQ SCH ×3 (08:11→23:29)
[2021-09-08] MEDS: ATORVASTATIN CALCIUM 10 MG TABLET PO SCH (08:11)
[2021-09-08] MEDS: SPIRONOLACTONE 25 MG TABLET PO SCH (09:00)
[2021-09-08] MEDS ORDERED: LIDOCAINE 2%/EPI 1:200,000/PF 20 ML VIAL ONE (10:41)
[2021-09-08] MEDS ORDERED: SODIUM CHLORIDE 0.9% 1,000 ML ONE (10:42)
[2021-09-08] MEDS ORDERED: SODIUM CL IRRIG SOLN BAG 3,000 ML IRRIG ONE (10:42)
[2021-09-08] MEDS ORDERED: BUPIVACAINE HCL/PF 0.5% 30 ML VIAL ONE ×2 (10:42→12:25)
[2021-09-08] MEDS ORDERED: RINGERS SOLUTION,LACTATED 1,000 ML IV ONE ×2 (11:42→12:00)
[2021-09-08] MEDS ORDERED: FentaNYL CITRATE PF 100 MCG/2 ML VIAL IVP PRN (11:45)
[2021-09-08] MEDS ORDERED: MEPERIDINE-PF 25 MG/ML VIAL IVP PRN (11:45)
[2021-09-08] MEDS ORDERED: HYDROmorphone 2 MG/ML VIAL IVP PRN (11:45)
[2021-09-08] MEDS ORDERED: MIDAZOLAM HCL 2 MG/2 ML VIAL IVP ONE (12:00)
[2021-09-08] MEDS ORDERED: EPHEDrine SULFATE 50 MG/ML VIAL IM ONE (12:00)
[2021-09-08] MEDS ORDERED: 0.9% SODIUM CHLORIDE 10 ML VIAL IVP ONE (12:00)
[2021-09-08] MEDS ORDERED: PROPOFOL 1% 20 ML VIAL IVP ONE (12:00)
[2021-09-08] MEDS ORDERED: SUCCINYLCHOLINE CHLORIDE 20 MG/ML 10 ML VIAL IVP ONE (12:00)
[2021-09-08] MEDS ORDERED: KETAMINE HCL 50 MG/ML 10 ML VIAL IVP ONE (12:00)
[2021-09-08] MEDS ORDERED: DEXAMETHASONE SOD PHOS 4 MG/ML VIAL IVP ONE (12:00)
[2021-09-08] MEDS ORDERED: FentaNYL CITRATE PF 100 MCG/2 ML VIAL IV ONE (12:00)
[2021-09-08] MEDS ORDERED: LIDOCAINE 1% 10 ML VIAL IM ONE (12:00)
[2021-09-08] MEDS ORDERED: ONDANSETRON HCL 4 MG/2 ML VIAL IVP ONE (12:00)
[2021-09-08 12:14] LABS: GLUCOMETER DEV NAME(LOC) 5N.3; GLUCOSE,POINT OF CARE 328 MG/DL (70-110)
[2021-09-08] MEDS ORDERED: IBUPROFEN 800 MG TABLET PO PRN (13:15)
[2021-09-08 15:50] VITALS: BP 133/80
[2021-09-08 17:15] LABS: GLUCOMETER DEV NAME(LOC) 5S.1; GLUCOSE,POINT OF CARE 199 MG/DL (70-110)
[2021-09-08 18:12] LABS: GLUCOMETER DEV NAME(LOC) 5S.1; GLUCOSE,POINT OF CARE 376 MG/DL (70-110)
[2021-09-08] MEDS: MAGNESIUM OXIDE 400 MG TABLET PO PRN (18:50)
[2021-09-08 19:59] VITALS: BP 113/64
[2021-09-08] MEDS: ZOLPIDEM TARTRATE 5 MG TABLET PO PRN (20:37)
[2021-09-08 20:44] LABS: GLUCOMETER DEV NAME(LOC) 5S.2B; GLUCOSE,POINT OF CARE 454 MG/DL (70-110)
[2021-09-08] MEDS: INSULIN GLARGINE,HUM.REC.ANLOG 100 UNITS/ML SQ SCH ×2 (20:44→21:24)
[2021-09-08] MEDS: OXYGEN THERAPY IH SCH (21:45)
[2021-09-09] MEDS: PIPERACILLIN/TAZO 3.375 GM/D5W 50 ML IV SCH ×2 (03:34→18:00)
[2021-09-09] MEDS: MAGNESIUM OXIDE 400 MG TABLET PO PRN (03:34)
[2021-09-09 04:31] VITALS: BP 97/56
[2021-09-09 06:09] LABS: BASOPHILS % (AUTO) 0.3 % (0.0-2.0); EOSINOPHILS % (AUTO) 0.1 % (1.0-6.0); HEMATOCRIT 36.7 % (41-53); LYMPHOCYTES # (AUTO) 1.7 K/uL (1.0-4.8); LYMPHOCYTES % (AUTO) 19.4 % (22.0-44.0); MEAN CORPUSCULAR HEMOGLOBIN 30.5 pg (26.0-34.0); MEAN CORPUSCULAR HGB CONC 32.8 G/dL (31.0-37.0); MEAN CORPUSCULAR VOLUME 93 fL (80-100); MONOCYTES # (AUTO) 0.5 K/uL (0.1-1.0); MONOCYTES % (AUTO) 5.1 % (2.0-9.0); NEUTROPHILS # (AUTO) 6.7 K/uL (1.8-7.7); NEUTROPHILS % (AUTO) 75.1 % (40.0-70.0); PLATELET COUNT (AUTO) 323 K/uL (150-450); RED BLOOD CELL COUNT(AUTO) 3.95 MIL/uL (4.50-5.90); RED CELL DISTRIBUTION WIDTH 15.5 % (11.5-14.5)
[2021-09-09] MEDS: INSULIN LISPRO 100 UNITS/ML SQ PRN ×4 (06:17→20:35)
[2021-09-09 06:21] LABS: GLUCOMETER DEV NAME(LOC) 5S.1; GLUCOSE,POINT OF CARE 312 MG/DL (70-110)
[2021-09-09 07:05] LABS: ALANINE AMINOTRANSFERASE 27 U/L (12-78); ALBUMIN 1.5 g/dL (3.4-5.0); ALKALINE PHOSPHATASE 74 U/L (46-116); ANION GAP 7 mmol/L (8-16); ASPARTATE AMINOTRANSFERASE 25 U/L (15-37); BILIRUBIN,TOTAL 0.2 mg/dL (0.1-1.0); CALCIUM, TOTAL 7.5 mg/dL (8.8-10.5); CARBON DIOXIDE 30 mmol/L (22-29); CHLORIDE 98 mmol/L (98-107); CREATININE 1.15 mg/dL (0.60-1.30); GLOMERULAR FILTR. RATE CALC > 60 mL/min (>60); GLUCOSE,RANDOM 292 mg/dL (70-110); POTASSIUM 4.2 mmol/L (3.5-5.1); SODIUM SERUM 135 mmol/L (136-145); TOTAL PROTEIN, SERUM 5.5 g/dL (6.4-8.2); UREA NITROGEN, BLOOD 28 mg/dL (7-18)
[2021-09-09 07:30] VITALS: BP 142/55
[2021-09-09] MEDS: OXYGEN THERAPY IH SCH ×2 (08:00→20:37)
[2021-09-09] MEDS: SACUBITRIL/VALSARTAN 24-26 MG TABLET PO SCH ×2 (09:00→20:30)
[2021-09-09] MEDS: FUROSEMIDE 40 MG/4 ML VIAL IVP SCH (09:00)
[2021-09-09] MEDS: CARVEDILOL 12.5 MG TABLET PO SCH ×2 (09:00→20:30)
[2021-09-09] MEDS: HEPARIN SODIUM,PORCINE 5,000 UNITS/ML VIAL SQ SCH ×2 (09:17→18:10)
[2021-09-09] MEDS: HYDROCODONE/ACETAMINOPHEN 5-325 MG TABLET PO PRN ×2 (09:18→20:30)
[2021-09-09] MEDS: DOCUSATE SODIUM 100 MG CAPSULE PO SCH ×2 (09:18→20:30)
[2021-09-09] MEDS: PANTOPRAZOLE SODIUM 40 MG DR TABLET PO SCH (09:18)
[2021-09-09] MEDS: ATORVASTATIN CALCIUM 10 MG TABLET PO SCH (09:19)
[2021-09-09] MEDS: ASPIRIN 81 MG DR TABLET PO SCH (09:19)
[2021-09-09] MEDS: SPIRONOLACTONE 25 MG TABLET PO SCH (09:19)
[2021-09-09] MEDS: INSULIN GLARGINE,HUM.REC.ANLOG 100 UNITS/ML SQ SCH ×2 (09:27→20:34)
[2021-09-09 11:07] VITALS: BP 105/51
[2021-09-09] MEDS: VANCOMYCIN HCL 750 MG in DEXTROSE 5%-WATER 250 ML IV SCH ×2 (12:15→22:08)
[2021-09-09 15:56] VITALS: BP 121/68
[2021-09-09 17:41] LABS: GLUCOMETER DEV NAME(LOC) 5S.2B; GLUCOSE,POINT OF CARE 214 MG/DL (70-110)
[2021-09-09 19:44] VITALS: BP 148/76
[2021-09-09] MEDS: ZOLPIDEM TARTRATE 5 MG TABLET PO PRN (20:30)
[2021-09-10] MEDS: HEPARIN SODIUM,PORCINE 5,000 UNITS/ML VIAL SQ SCH ×4 (00:49→23:36)
[2021-09-10] MEDS: PIPERACILLIN/TAZO 3.375 GM/D5W 50 ML IV SCH ×5 (00:49→23:36)
[2021-09-10 03:59] LABS: GLUCOMETER DEV NAME(LOC) 5S.1; GLUCOSE,POINT OF CARE 152 MG/DL (70-110)
[2021-09-10 03:59] LABS: GLUCOMETER DEV NAME(LOC) 5S.1; GLUCOSE,POINT OF CARE 151 MG/DL (70-110)
[2021-09-10 03:59] LABS: GLUCOMETER DEV NAME(LOC) 5S.1; GLUCOSE,POINT OF CARE 244 MG/DL (70-110)
[2021-09-10 05:54] VITALS: BP 122/52
[2021-09-10] MEDS: HYDROCODONE/ACETAMINOPHEN 5-325 MG TABLET PO PRN ×2 (06:27→21:08)
[2021-09-10] MEDS: INSULIN LISPRO 100 UNITS/ML SQ PRN ×4 (06:28→21:09)
[2021-09-10 06:32] LABS: GLUCOMETER DEV NAME(LOC) 5S.2B; GLUCOSE,POINT OF CARE 175 MG/DL (70-110)
[2021-09-10 07:01] LABS: BASOPHILS % (AUTO) 0.7 % (0.0-2.0); EOSINOPHILS % (AUTO) 2.7 % (1.0-6.0); HEMATOCRIT 33.2 % (41-53); LYMPHOCYTES # (AUTO) 2.2 K/uL (1.0-4.8); LYMPHOCYTES % (AUTO) 27.4 % (22.0-44.0); MEAN CORPUSCULAR HEMOGLOBIN 30.7 pg (26.0-34.0); MEAN CORPUSCULAR HGB CONC 33.2 G/dL (31.0-37.0); MEAN CORPUSCULAR VOLUME 92 fL (80-100); MONOCYTES # (AUTO) 0.6 K/uL (0.1-1.0); MONOCYTES % (AUTO) 6.8 % (2.0-9.0); NEUTROPHILS # (AUTO) 5.1 K/uL (1.8-7.7); NEUTROPHILS % (AUTO) 62.4 % (40.0-70.0); PLATELET COUNT (AUTO) 288 K/uL (150-450); RED BLOOD CELL COUNT(AUTO) 3.59 MIL/uL (4.50-5.90); RED CELL DISTRIBUTION WIDTH 15.9 % (11.5-14.5)
[2021-09-10 07:21] VITALS: BP 135/69
[2021-09-10 07:28] LABS: ALANINE AMINOTRANSFERASE 34 U/L (12-78); ALBUMIN 1.7 g/dL (3.4-5.0); ALKALINE PHOSPHATASE 63 U/L (46-116); ANION GAP 2 mmol/L (8-16); ASPARTATE AMINOTRANSFERASE 38 U/L (15-37); BILIRUBIN,TOTAL 0.3 mg/dL (0.1-1.0); CALCIUM, TOTAL 7.6 mg/dL (8.8-10.5); CARBON DIOXIDE 31 mmol/L (22-29); CHLORIDE 103 mmol/L (98-107); GLOMERULAR FILTR. RATE CALC > 60 mL/min (>60); GLUCOSE,RANDOM 181 mg/dL (70-110); POTASSIUM 4.5 mmol/L (3.5-5.1); SODIUM SERUM 136 mmol/L (136-145); TOTAL PROTEIN, SERUM 5.5 g/dL (6.4-8.2); UREA NITROGEN, BLOOD 22 mg/dL (7-18); VANCOMYCIN,RANDOM 18.6 mcg/mL (25.0-50.0)
[2021-09-10] MEDS: SACUBITRIL/VALSARTAN 24-26 MG TABLET PO SCH ×2 (07:46→21:08)
[2021-09-10] MEDS: DOCUSATE SODIUM 100 MG CAPSULE PO SCH ×2 (07:46→21:08)
[2021-09-10] MEDS: SPIRONOLACTONE 25 MG TABLET PO SCH (07:46)
[2021-09-10] MEDS: ASPIRIN 81 MG DR TABLET PO SCH (07:47)
[2021-09-10] MEDS: PANTOPRAZOLE SODIUM 40 MG DR TABLET PO SCH (07:47)
[2021-09-10] MEDS: ATORVASTATIN CALCIUM 10 MG TABLET PO SCH (07:48)
[2021-09-10] MEDS: CARVEDILOL 12.5 MG TABLET PO SCH ×2 (07:48→21:08)
[2021-09-10] MEDS: FUROSEMIDE 40 MG/4 ML VIAL IVP SCH (07:49)
[2021-09-10] MEDS: INSULIN GLARGINE,HUM.REC.ANLOG 100 UNITS/ML SQ SCH ×2 (07:51→21:09)
[2021-09-10] MEDS: VANCOMYCIN HCL 750 MG in DEXTROSE 5%-WATER 250 ML IV SCH ×2 (07:52→21:16)
[2021-09-10] MEDS: OXYGEN THERAPY IH SCH ×2 (07:52→20:00)
[2021-09-10 11:33] VITALS: BP 116/58
[2021-09-10 15:44] VITALS: BP 118/54
[2021-09-10] MEDS ORDERED: SODIUM CHLORIDE 0.9% 1,000 ML ONE (17:33)
[2021-09-10 19:50] VITALS: BP 124/62
[2021-09-10 20:31] LABS: GLUCOMETER DEV NAME(LOC) 5N.3; GLUCOSE,POINT OF CARE 207 MG/DL (70-110)
[2021-09-10 20:31] LABS: GLUCOMETER DEV NAME(LOC) 5N.3; GLUCOSE,POINT OF CARE 227 MG/DL (70-110)
[2021-09-10] MEDS: MAGNESIUM HYDROXIDE SUSPENSION 30 ML UDCUP PO PRN (21:08)
[2021-09-11 02:06] LABS: GLUCOMETER DEV NAME(LOC) 5S.1; GLUCOSE,POINT OF CARE 194 MG/DL (70-110)
[2021-09-11 04:40] VITALS: BP 126/63
[2021-09-11] MEDS: PIPERACILLIN/TAZO 3.375 GM/D5W 50 ML IV SCH ×3 (05:30→17:32)
[2021-09-11] MEDS: INSULIN LISPRO 100 UNITS/ML SQ PRN ×4 (05:32→20:46)
[2021-09-11] MEDS: HYDROCODONE/ACETAMINOPHEN 5-325 MG TABLET PO PRN ×2 (06:04→20:44)
[2021-09-11 06:59] LABS: ALBUMIN 1.8 g/dL (3.4-5.0); ANION GAP 5 mmol/L (8-16); CALCIUM, TOTAL 7.8 mg/dL (8.8-10.5); CARBON DIOXIDE 30 mmol/L (22-29); CHLORIDE 101 mmol/L (98-107); CREATININE 0.88 mg/dL (0.60-1.30); GLOMERULAR FILTR. RATE CALC > 60 mL/min (>60); GLUCOSE,RANDOM 267 mg/dL (70-110); POTASSIUM 4.3 mmol/L (3.5-5.1); SODIUM SERUM 136 mmol/L (136-145); UREA NITROGEN, BLOOD 20 mg/dL (7-18)
[2021-09-11 07:21] VITALS: BP 132/66
[2021-09-11] MEDS: OXYGEN THERAPY IH SCH ×2 (08:00→19:57)
[2021-09-11] MEDS: ASPIRIN 81 MG DR TABLET PO SCH (09:01)
[2021-09-11] MEDS: SACUBITRIL/VALSARTAN 24-26 MG TABLET PO SCH ×2 (09:01→20:44)
[2021-09-11] MEDS: DOCUSATE SODIUM 100 MG CAPSULE PO SCH ×2 (09:01→20:44)
[2021-09-11] MEDS: SPIRONOLACTONE 25 MG TABLET PO SCH (09:01)
[2021-09-11] MEDS: PANTOPRAZOLE SODIUM 40 MG DR TABLET PO SCH (09:01)
[2021-09-11] MEDS: CARVEDILOL 12.5 MG TABLET PO SCH ×2 (09:02→20:44)
[2021-09-11] MEDS: FUROSEMIDE 40 MG/4 ML VIAL IVP SCH (09:02)
[2021-09-11] MEDS: HEPARIN SODIUM,PORCINE 5,000 UNITS/ML VIAL SQ SCH ×2 (09:02→16:31)
[2021-09-11] MEDS: ATORVASTATIN CALCIUM 10 MG TABLET PO SCH (09:02)
[2021-09-11] MEDS: VANCOMYCIN HCL 750 MG in DEXTROSE 5%-WATER 250 ML IV SCH ×2 (09:02→20:44)
[2021-09-11] MEDS: INSULIN GLARGINE,HUM.REC.ANLOG 100 UNITS/ML SQ SCH ×2 (09:04→20:45)
[2021-09-11 11:03] VITALS: BP 129/78
[2021-09-11 15:14] VITALS: BP 126/66
[2021-09-11 17:30] LABS: GLUCOMETER DEV NAME(LOC) 5N.1C; GLUCOSE,POINT OF CARE 205 MG/DL (70-110)
[2021-09-11 18:12] LABS: GLUCOMETER DEV NAME(LOC) 5S.2B; GLUCOSE,POINT OF CARE 182 MG/DL (70-110)
[2021-09-11 20:30] VITALS: BP 110/60
[2021-09-11 20:49] LABS: GLUCOMETER DEV NAME(LOC) 5S.1; GLUCOSE,POINT OF CARE 209 MG/DL (70-110)
[2021-09-11] MEDS ORDERED: MORPHINE SULFATE 2 MG/ML SYRINGE IVP ONE (22:45)
[2021-09-11] MEDS: ZOLPIDEM TARTRATE 5 MG TABLET PO PRN (22:48)
[2021-09-12] VITALS (7 sets, daily range): BP systolic 104–137; BP diastolic 45–73
[2021-09-12] MEDS: HEPARIN SODIUM,PORCINE 5,000 UNITS/ML VIAL SQ SCH ×3 (00:12→15:59)
[2021-09-12] MEDS: PIPERACILLIN/TAZO 3.375 GM/D5W 50 ML IV SCH ×2 (00:12→05:47)
[2021-09-12] MEDS: INSULIN LISPRO 100 UNITS/ML SQ PRN ×3 (05:46→17:57)
[2021-09-12 05:47] LABS: GLUCOMETER DEV NAME(LOC) 5N.3; GLUCOSE,POINT OF CARE 239 MG/DL (70-110)
[2021-09-12 05:55] LABS: GLUCOMETER DEV NAME(LOC) 5N.1C; GLUCOSE,POINT OF CARE 203 MG/DL (70-110)
[2021-09-12] MEDS: HYDROCODONE/ACETAMINOPHEN 5-325 MG TABLET PO PRN (05:58)
[2021-09-12 06:35] LABS: ANION GAP 3 mmol/L (8-16); CALCIUM, TOTAL 8.1 mg/dL (8.8-10.5); CARBON DIOXIDE 30 mmol/L (22-29); CHLORIDE 103 mmol/L (98-107); CREATININE 0.91 mg/dL (0.60-1.30); GLOMERULAR FILTR. RATE CALC > 60 mL/min (>60); GLUCOSE,RANDOM 215 mg/dL (70-110); POTASSIUM 4.6 mmol/L (3.5-5.1); SODIUM SERUM 136 mmol/L (136-145); UREA NITROGEN, BLOOD 21 mg/dL (7-18)
[2021-09-12] MEDS: OXYGEN THERAPY IH SCH ×2 (08:00→20:00)
[2021-09-12] MEDS: VANCOMYCIN HCL 750 MG in DEXTROSE 5%-WATER 250 ML IV SCH (08:17)
[2021-09-12] MEDS: FUROSEMIDE 40 MG/4 ML VIAL IVP SCH (08:17)
[2021-09-12] MEDS: SACUBITRIL/VALSARTAN 24-26 MG TABLET PO SCH ×2 (08:18→21:44)
[2021-09-12] MEDS: ATORVASTATIN CALCIUM 10 MG TABLET PO SCH (08:19)
[2021-09-12] MEDS: PANTOPRAZOLE SODIUM 40 MG DR TABLET PO SCH (08:19)
[2021-09-12] MEDS: ASPIRIN 81 MG DR TABLET PO SCH (08:20)
[2021-09-12] MEDS: DOCUSATE SODIUM 100 MG CAPSULE PO SCH ×2 (08:46→21:44)
[2021-09-12] MEDS: SPIRONOLACTONE 25 MG TABLET PO SCH (10:59)
[2021-09-12] MEDS: CARVEDILOL 12.5 MG TABLET PO SCH ×2 (10:59→21:45)
[2021-09-12] MEDS: INSULIN GLARGINE,HUM.REC.ANLOG 100 UNITS/ML SQ SCH ×2 (11:01→21:36)
[2021-09-12] MEDS: MORPHINE SULFATE 2 MG/ML SYRINGE IVP PRN (12:18)
[2021-09-12] MEDS: MEROPENEM 1 GM in SODIUM CHLORIDE 0.9% 100 ML IV SCH ×2 (12:19→17:58)
[2021-09-12 14:54] LABS: GLUCOMETER DEV NAME(LOC) 5S.1; GLUCOSE,POINT OF CARE 276 MG/DL (70-110)
[2021-09-12 18:18] LABS: GLUCOMETER DEV NAME(LOC) 5S.1; GLUCOSE,POINT OF CARE 196 MG/DL (70-110)
[2021-09-13 00:12] VITALS: BP 125/67
[2021-09-13] MEDS: ZOLPIDEM TARTRATE 5 MG TABLET PO PRN (01:42)
[2021-09-13] MEDS: HEPARIN SODIUM,PORCINE 5,000 UNITS/ML VIAL SQ SCH ×4 (01:42→23:42)
[2021-09-13] MEDS: MEROPENEM 1 GM in SODIUM CHLORIDE 0.9% 100 ML IV SCH ×3 (01:43→18:16)
[2021-09-13] MEDS: MORPHINE SULFATE 2 MG/ML SYRINGE IVP PRN (01:53)
[2021-09-13 01:59] LABS: GLUCOMETER DEV NAME(LOC) 5S.1; GLUCOSE,POINT OF CARE 296 MG/DL (70-110)
[2021-09-13 05:21] VITALS: BP 107/66
[2021-09-13 06:57] LABS: BASOPHILS % (AUTO) 1.3 % (0.0-2.0); EOSINOPHILS % (AUTO) 1.7 % (1.0-6.0); HEMATOCRIT 31.7 % (41-53); HEMOGLOBIN 10.4 g/dL (13.5-17.5); LYMPHOCYTES # (AUTO) 1.9 K/uL (1.0-4.8); LYMPHOCYTES % (AUTO) 24.5 % (22.0-44.0); MEAN CORPUSCULAR HEMOGLOBIN 30.5 pg (26.0-34.0); MEAN CORPUSCULAR HGB CONC 32.8 G/dL (31.0-37.0); MEAN CORPUSCULAR VOLUME 93 fL (80-100); MONOCYTES # (AUTO) 0.5 K/uL (0.1-1.0); MONOCYTES % (AUTO) 6.6 % (2.0-9.0); NEUTROPHILS % (AUTO) 65.9 % (40.0-70.0); PLATELET COUNT (AUTO) 267 K/uL (150-450); RED BLOOD CELL COUNT(AUTO) 3.41 MIL/uL (4.50-5.90); RED CELL DISTRIBUTION WIDTH 15.9 % (11.5-14.5)
[2021-09-13 07:15] LABS: ANION GAP 2 mmol/L (8-16); CALCIUM, TOTAL 8.2 mg/dL (8.8-10.5); CARBON DIOXIDE 30 mmol/L (22-29); CHLORIDE 104 mmol/L (98-107); CREATININE 0.75 mg/dL (0.60-1.30); GLOMERULAR FILTR. RATE CALC > 60 mL/min (>60); GLUCOSE,RANDOM 198 mg/dL (70-110); POTASSIUM 4.5 mmol/L (3.5-5.1); SODIUM SERUM 136 mmol/L (136-145); UREA NITROGEN, BLOOD 22 mg/dL (7-18)
[2021-09-13 07:59] VITALS: BP 118/65
[2021-09-13] MEDS: OXYGEN THERAPY IH SCH ×2 (08:00→21:21)
[2021-09-13 08:35] LABS: GLUCOMETER DEV NAME(LOC) 5N.1C; GLUCOSE,POINT OF CARE 195 MG/DL (70-110)
[2021-09-13] MEDS: SPIRONOLACTONE 25 MG TABLET PO SCH (09:39)
[2021-09-13] MEDS: DOCUSATE SODIUM 100 MG CAPSULE PO SCH ×2 (09:39→21:10)
[2021-09-13] MEDS: SACUBITRIL/VALSARTAN 24-26 MG TABLET PO SCH ×2 (09:39→21:10)
[2021-09-13] MEDS: PANTOPRAZOLE SODIUM 40 MG DR TABLET PO SCH (09:39)
[2021-09-13] MEDS: CARVEDILOL 12.5 MG TABLET PO SCH ×2 (09:40→21:10)
[2021-09-13] MEDS: FUROSEMIDE 40 MG/4 ML VIAL IVP SCH (09:40)
[2021-09-13] MEDS: ASPIRIN 81 MG DR TABLET PO SCH (09:40)
[2021-09-13] MEDS: ATORVASTATIN CALCIUM 10 MG TABLET PO SCH (09:40)
[2021-09-13] MEDS: INSULIN GLARGINE,HUM.REC.ANLOG 100 UNITS/ML SQ SCH ×2 (09:58→21:20)
[2021-09-13] MEDS: INSULIN LISPRO 100 UNITS/ML SQ PRN ×3 (09:59→18:16)
[2021-09-13] MEDS: HYDROCODONE/ACETAMINOPHEN 5-325 MG TABLET PO PRN ×2 (11:23→23:42)
[2021-09-13 11:29] VITALS: BP 136/71
[2021-09-13 12:26] LABS: GLUCOMETER DEV NAME(LOC) 5S.1; GLUCOSE,POINT OF CARE 242 MG/DL (70-110)
[2021-09-13 16:33] VITALS: BP 130/76
[2021-09-13 19:42] VITALS: BP 139/80
[2021-09-14 00:18] VITALS: BP 125/68
[2021-09-14 01:43] LABS: GLUCOMETER DEV NAME(LOC) 5S.2B; GLUCOSE,POINT OF CARE 303 MG/DL (70-110)
[2021-09-14 01:59] LABS: GLUCOMETER DEV NAME(LOC) 5S.1; GLUCOSE,POINT OF CARE 189 MG/DL (70-110)
[2021-09-14] MEDS: MEROPENEM 1 GM in SODIUM CHLORIDE 0.9% 100 ML IV SCH ×3 (02:16→19:48)
[2021-09-14 04:31] VITALS: BP 91/40
[2021-09-14] MEDS: ASPIRIN 81 MG DR TABLET PO SCH (07:54)
[2021-09-14] MEDS: ATORVASTATIN CALCIUM 10 MG TABLET PO SCH (07:54)
[2021-09-14] MEDS: SACUBITRIL/VALSARTAN 24-26 MG TABLET PO SCH ×2 (07:54→20:22)
[2021-09-14] MEDS: PANTOPRAZOLE SODIUM 40 MG DR TABLET PO SCH (07:54)
[2021-09-14] MEDS: FUROSEMIDE 40 MG/4 ML VIAL IVP SCH (07:55)
[2021-09-14] MEDS: SPIRONOLACTONE 25 MG TABLET PO SCH (07:55)
[2021-09-14] MEDS: DOCUSATE SODIUM 100 MG CAPSULE PO SCH ×2 (07:55→20:22)
[2021-09-14] MEDS: HEPARIN SODIUM,PORCINE 5,000 UNITS/ML VIAL SQ SCH ×2 (07:55→16:46)
[2021-09-14] MEDS: CARVEDILOL 12.5 MG TABLET PO SCH ×2 (07:55→20:22)
[2021-09-14] MEDS: INSULIN GLARGINE,HUM.REC.ANLOG 100 UNITS/ML SQ SCH ×2 (08:01→20:23)
[2021-09-14] MEDS: OXYGEN THERAPY IH SCH ×2 (08:07→20:00)
[2021-09-14 08:44] VITALS: BP 126/76
[2021-09-14] MEDS: INSULIN LISPRO 100 UNITS/ML SQ PRN ×3 (11:17→20:25)
[2021-09-14 11:33] VITALS: BP 105/60
[2021-09-14 12:31] LABS: GLUCOMETER DEV NAME(LOC) 5N.1C; GLUCOSE,POINT OF CARE 312 MG/DL (70-110)
[2021-09-14 17:57] LABS: GLUCOMETER DEV NAME(LOC) 5S.1; GLUCOSE,POINT OF CARE 149 MG/DL (70-110)
[2021-09-14 19:31] VITALS: BP 120/70
[2021-09-14] MEDS: HYDROCODONE/ACETAMINOPHEN 5-325 MG TABLET PO PRN (20:29)
[2021-09-14 20:48] LABS: GLUCOMETER DEV NAME(LOC) 5N.1C; GLUCOSE,POINT OF CARE 162 MG/DL (70-110)
[2021-09-14] MEDS ORDERED: SODIUM CHLORIDE 0.9% 1,000 ML IV ONE (23:45)
[2021-09-14 23:55] VITALS: BP 85/45
[2021-09-15] MEDS: HEPARIN SODIUM,PORCINE 5,000 UNITS/ML VIAL SQ SCH ×4 (00:42→23:34)
[2021-09-15] MEDS: SODIUM CHLORIDE 0.9% 1,000 ML IV SCH ×3 (00:43→19:45)
[2021-09-15 01:04] VITALS: BP 92/60
[2021-09-15] MEDS: MEROPENEM 1 GM in SODIUM CHLORIDE 0.9% 100 ML IV SCH (02:38)
[2021-09-15 05:45] VITALS: BP 116/71
[2021-09-15] MEDS: INSULIN LISPRO 100 UNITS/ML SQ PRN ×3 (05:57→17:22)
[2021-09-15 06:18] LABS: GLUCOMETER DEV NAME(LOC) 5S.1; GLUCOSE,POINT OF CARE 133 MG/DL (70-110)
[2021-09-15] MEDS: OXYGEN THERAPY IH SCH ×2 (08:00→20:00)
[2021-09-15] MEDS: ATORVASTATIN CALCIUM 10 MG TABLET PO SCH (10:21)
[2021-09-15] MEDS: SACUBITRIL/VALSARTAN 24-26 MG TABLET PO SCH ×2 (10:21→20:41)
[2021-09-15] MEDS: PANTOPRAZOLE SODIUM 40 MG DR TABLET PO SCH (10:21)
[2021-09-15] MEDS: CARVEDILOL 12.5 MG TABLET PO SCH ×2 (10:21→20:41)
[2021-09-15] MEDS: DOCUSATE SODIUM 100 MG CAPSULE PO SCH ×2 (10:21→20:54)
[2021-09-15] MEDS: ASPIRIN 81 MG DR TABLET PO SCH (10:21)
[2021-09-15] MEDS: FUROSEMIDE 40 MG/4 ML VIAL IVP SCH (10:22)
[2021-09-15] MEDS: INSULIN GLARGINE,HUM.REC.ANLOG 100 UNITS/ML SQ SCH ×2 (10:22→20:43)
[2021-09-15] MEDS: SPIRONOLACTONE 25 MG TABLET PO SCH (10:26)
[2021-09-15 11:19] LABS: ANION GAP 5 mmol/L (8-16); CALCIUM, TOTAL 8.1 mg/dL (8.8-10.5); CARBON DIOXIDE 28 mmol/L (22-29); CHLORIDE 104 mmol/L (98-107); CREATININE 0.79 mg/dL (0.60-1.30); GLOMERULAR FILTR. RATE CALC > 60 mL/min (>60); GLUCOSE,RANDOM 212 mg/dL (70-110); SODIUM SERUM 137 mmol/L (136-145); UREA NITROGEN, BLOOD 27 mg/dL (7-18)
[2021-09-15 11:47] VITALS: BP 133/77
[2021-09-15] MEDS: LEVOFLOXACIN 750 MG TABLET PO SCH (13:29)
[2021-09-15] MEDS: ERTAPENEM SODIUM 1 GM in SODIUM CHLORIDE 0.9% 50 ML IV SCH (13:29)
[2021-09-15 13:32] LABS: GLUCOMETER DEV NAME(LOC) 5S.2B; GLUCOSE,POINT OF CARE 218 MG/DL (70-110)
[2021-09-15] MEDS: HYDROCODONE/ACETAMINOPHEN 5-325 MG TABLET PO PRN ×2 (14:26→20:42)
[2021-09-15 16:34] VITALS: BP 103/58
[2021-09-15 17:33] LABS: GLUCOMETER DEV NAME(LOC) 5N.3; GLUCOSE,POINT OF CARE 141 MG/DL (70-110)
[2021-09-15 20:10] VITALS: BP 117/66
[2021-09-16 00:07] LABS: GLUCOMETER DEV NAME(LOC) 5S.2B; GLUCOSE,POINT OF CARE 195 MG/DL (70-110)
[2021-09-16 00:07] LABS: GLUCOMETER DEV NAME(LOC) 5S.2B; GLUCOSE,POINT OF CARE 293 MG/DL (70-110)
[2021-09-16 00:10] VITALS: BP 122/61
[2021-09-16 04:40] VITALS: BP 118/64
[2021-09-16] MEDS: SODIUM CHLORIDE 0.9% 1,000 ML IV SCH (05:45)
[2021-09-16] MEDS: HEPARIN SODIUM,PORCINE 5,000 UNITS/ML VIAL SQ SCH (09:18)
[2021-09-16] MEDS: SPIRONOLACTONE 25 MG TABLET PO SCH (09:19)
[2021-09-16] MEDS: CARVEDILOL 12.5 MG TABLET PO SCH (09:19)
[2021-09-16] MEDS: ASPIRIN 81 MG DR TABLET PO SCH (09:19)
[2021-09-16] MEDS: DOCUSATE SODIUM 100 MG CAPSULE PO SCH (09:19)
[2021-09-16] MEDS: PANTOPRAZOLE SODIUM 40 MG DR TABLET PO SCH (09:19)
[2021-09-16] MEDS: LEVOFLOXACIN 750 MG TABLET PO SCH (09:19)
[2021-09-16] MEDS: ATORVASTATIN CALCIUM 10 MG TABLET PO SCH (09:19)
[2021-09-16] MEDS: FUROSEMIDE 40 MG/4 ML VIAL IVP SCH (09:19)
[2021-09-16] MEDS: SACUBITRIL/VALSARTAN 24-26 MG TABLET PO SCH (09:19)
[2021-09-16] MEDS: INSULIN GLARGINE,HUM.REC.ANLOG 100 UNITS/ML SQ SCH (09:27)
[2021-09-16 09:43] LABS: GLUCOMETER DEV NAME(LOC) 5N.3; GLUCOSE,POINT OF CARE 273 MG/DL (70-110)
[2021-09-16 12:14] VITALS: BP 155/84
[2021-09-16] MEDS: ERTAPENEM SODIUM 1 GM in SODIUM CHLORIDE 0.9% 50 ML IV SCH (12:33)
[2021-09-16] MEDS ORDERED: ASPI-1450 PO (16:47)
[2021-09-16] MEDS ORDERED: ATOR10TA84 PO (16:48)
[2021-09-16] MEDS ORDERED: DOCU-270 PO (16:49)
[2021-09-16] MEDS ORDERED: CARV12 PO (16:49)
[2021-09-16] MEDS ORDERED: ERTA1I IV (16:50)
[2021-09-16] MEDS ORDERED: FURO40 PO (16:51)
[2021-09-16] MEDS ORDERED: PANT-31 PO (16:57)
[2021-09-16] MEDS ORDERED: SACU1TAB PO (16:57)
[2021-09-16] MEDS ORDERED: LEVO750T68 PO (16:57)
[2021-09-16] MEDS ORDERED: SPIR-37 PO (16:58)
[2021-09-16] MEDS ORDERED: ACET-2247 PO (16:58)
== END 2021-09-16 17:55 | disposition home health service (06) | DRG 364 ==
LOC: EMS 17:39 → 5S 23:00
PROVIDERS: ADMIT Internal Medicine; ATTEND Internal Medicine
PROC: 0W993ZZ Drainage of Right Pleural Cavity, Percutaneous Approach (ICD-10-PCS; principal; 2021-09-04)
PROC: 0KBT0ZZ Excision of Left Lower Leg Muscle, Open Approach (ICD-10-PCS; 2021-09-08)
PROC: 0Y9J0ZZ Drainage of Left Lower Leg, Open Approach (ICD-10-PCS; 2021-09-08)
DX: L03.116 Cellulitis of left lower limb (principal); J96.01 Acute respiratory failure with hypoxia; I50.23 Acute on chronic systolic (congestive) heart failure; E43 Unspecified severe protein-calorie malnutrition; J91.8 Pleural effusion in other conditions classified elsewhere; L89.94 Pressure ulcer of unspecified site, stage 4; K22.0 Achalasia of cardia; I47.2 Ventricular tachycardia; I42.8 Other cardiomyopathies; L02.416 Cutaneous abscess of left lower limb; F25.9 Schizoaffective disorder, unspecified; E11.51 Type 2 diabetes mellitus with diabetic peripheral angiopathy without gangrene; R18.8 Other ascites; T79.A0XA Compartment syndrome, unspecified, initial encounter; I11.0 Hypertensive heart disease with heart failure; F14.90 Cocaine use, unspecified, uncomplicated; F17.210 Nicotine dependence, cigarettes, uncomplicated; I34.0 Nonrheumatic mitral (valve) insufficiency; Z53.29 Procedure and treatment not carried out because of patient's decision for other reasons; F15.10 Other stimulant abuse, uncomplicated; X58.XXXA Exposure to other specified factors, initial encounter; Z20.822 Contact with and (suspected) exposure to COVID-19; E11.65 Type 2 diabetes mellitus with hyperglycemia; I70.8 Atherosclerosis of other arteries; Z91.19 Patient's noncompliance with other medical treatment and regimen; Z79.4 Long term (current) use of insulin; Z86.14 Personal history of Methicillin resistant Staphylococcus aureus infection; Y93.89 Activity, other specified; Y92.89 Other specified places as the place of occurrence of the external cause; Y99.8 Other external cause status; Z68.25 Body mass index [BMI] 25.0-25.9, adult; Z79.899 Other long term (current) drug therapy
CPT/HCPCS: 32555; 36600; 71045; 71046; 71275; 73701; 76942; 80048; 80053; 80202; 80307; 81001; 82040; 82550; 82805; 82945; 82948; 82962; 83605; 83615; 83735; 83880; 84132; 84145; 84157; 84484; 85025; 85379; 85610; 86140; 87040; 87070; 87075; 87077; 87081; 87186; 87205; 88108; 88304; 88312; 89051; 93005; 93306; 93925; 93970; 97116; 97163; 99291; J0330; J0692; J1100; J1335; J1644; J1815; J1940; J2185; J2250; J2270; J2405; J2543; J2704; J3010; J3370; J3490; J7030; J7050; J7060; J7120; Q9967; 36415-L1; 36415-TC

== ENCOUNTER 2021-09-20 13:26 | Emergency (ER) | payer SELFPAY ==
[~2021-09-20] VITALS: Ht 172.7 cm; Wt 65.9 kg
[~2021-09-20 13:26] MED LIST changes: +ACET-2247 PO; +ASPI-1450 PO; +ATOR10TA84 PO; +CARV12 PO; -DOXY-354 PO; +ERTA1I IV; +FURO40 PO; -INSREG SQ; +LEVO750T68 PO; +PANT-31 PO; +SACU1TAB PO; +SPIR-37 PO
[2021-09-20 13:49] LABS: GLUCOMETER DEV NAME(LOC) ERT.5; GLUCOSE,POINT OF CARE 97 MG/DL (70-110)
[2021-09-20] MEDS ORDERED: OxyCODONE HCL/ACETAMINOPHEN 5-325 MG TABLET PO PRN (14:15)
[2021-09-20] MEDS ORDERED: DEXTROSE 50%-WATER 25 GM/50 ML SYRINGE IVP PRN (14:15)
[2021-09-20] MEDS ORDERED: *CLINICAL-LEVOFLOXACIN IVPB DOSING CLINICAL ONE (14:15)
[2021-09-20] MEDS ORDERED: INSULIN LISPRO 100 UNITS/ML SQ PRN (14:15)
[2021-09-20] MEDS ORDERED: ONDANSETRON HCL 4 MG/2 ML VIAL IVP PRN (14:15)
[2021-09-20] MEDS ORDERED: ALBUTEROL SULFATE 2.5 MG/0.5 ML NEB SOLUTION NEB PRN (14:15)
[2021-09-20] MEDS ORDERED: ACETAMINOPHEN 325 MG TABLET PO PRN ×2 (14:15)
[2021-09-20 14:24] LABS: EOSINOPHILS % (AUTO) 0.2 % (1.0-6.0); HEMATOCRIT 36.3 % (41-53); HEMOGLOBIN 11.8 g/dL (13.5-17.5); MEAN CORPUSCULAR HEMOGLOBIN 30.3 pg (26.0-34.0); MEAN CORPUSCULAR HGB CONC 32.6 G/dL (31.0-37.0); MEAN CORPUSCULAR VOLUME 93 fL (80-100); MONOCYTES # (AUTO) 0.3 K/uL (0.1-1.0); MONOCYTES % (AUTO) 3.8 % (2.0-9.0); NEUTROPHILS # (AUTO) 7.5 K/uL (1.8-7.7); PLATELET COUNT (AUTO) 317 K/uL (150-450); RED CELL DISTRIBUTION WIDTH 16.6 % (11.5-14.5)
[2021-09-20 14:37] LABS: ANION GAP 8 mmol/L (8-16); CALCIUM, TOTAL 8.9 mg/dL (8.8-10.5); CARBON DIOXIDE 29 mmol/L (22-29); CHLORIDE 104 mmol/L (98-107); GLOMERULAR FILTR. RATE CALC > 60 mL/min (>60); GLUCOSE,RANDOM 71 mg/dL (70-110); SODIUM SERUM 141 mmol/L (136-145); UREA NITROGEN, BLOOD 26 mg/dL (7-18)
[2021-09-20 14:42] LABS: B-TYPE NATRIURETIC PEPTIDE 2670 pg/mL (0-100)
[2021-09-20 14:45] LABS: LACTIC ACID 0.9 mmol/L (0.4-2.0)
[2021-09-20 14:51] LABS: ALANINE AMINOTRANSFERASE 45 U/L (12-78); ALBUMIN 2.5 g/dL (3.4-5.0); ALKALINE PHOSPHATASE 122 U/L (46-116); ASPARTATE AMINOTRANSFERASE 40 U/L (15-37); BILIRUBIN,TOTAL 0.6 mg/dL (0.1-1.0); LIPASE 59 U/L (73-393); TOTAL PROTEIN, SERUM 7.4 g/dL (6.4-8.2)
[2021-09-20] MEDS ORDERED: ERTAPENEM SODIUM 1 GM in SODIUM CHLORIDE 0.9% 50 ML IV SCH (15:00)
[2021-09-20] MEDS ORDERED: HEPARIN SODIUM,PORCINE 5,000 UNITS/ML VIAL SQ SCH (16:00)
[2021-09-20] MEDS ORDERED: LEVOFLOXACIN 750 MG/D5% WATER 150 ML IV SCH (16:00)
[2021-09-20 17:37] LABS: COVID AG,FIA SOURCE NASOPHARYNGEAL
[2021-09-20 17:52] LABS: AMPHET/METH SCREEN,URINE POSITIVE (NEGATIVE); BARBITURATE SCREEN, URINE NEGATIVE (NEGATIVE); BENZODIAZEPINES SCREEN,URINE NEGATIVE (NEGATIVE); CANNABINOID SCREEN,URINE NEGATIVE (NEGATIVE); COCAINE SCREEN,URINE NEGATIVE (NEGATIVE); METHADONE SCREEN, URINE NEGATIVE (NEGATIVE); OPIATE SCREEN,URINE POSITIVE (NEGATIVE)
[2021-09-20 17:53] LABS: PHENCYCLIDINE SCREEN,URINE NEGATIVE (NEGATIVE)
[2021-09-20 18:43] VITALS: BP 138/77
[2021-09-20] MEDS ORDERED: CARVEDILOL 12.5 MG TABLET PO SCH (21:00)
[2021-09-20] MEDS ORDERED: DOCUSATE SODIUM 100 MG CAPSULE PO SCH (21:00)
[2021-09-21] MEDS ORDERED: ASPIRIN 81 MG CHEWABLE TABLET PO SCH (09:00)
[2021-09-21] MEDS ORDERED: FUROSEMIDE 20 MG TABLET PO SCH (09:00)
[2021-09-21] MEDS ORDERED: FAMOTIDINE 20 MG TABLET PO SCH (09:00)
[2021-09-21] MEDS ORDERED: MULTIVITAMINS WITH MINERALS, THERAPEUTIC TABLET PO SCH (09:00)
== END 2021-09-20 21:38 | disposition left against medical advice (07) ==
LOC: EMS 13:32 → 5S 18:56 → UNDOADMIN 18:56 → EMS 21:38
DX: A41.9 Sepsis, unspecified organism (principal); E11.649 Type 2 diabetes mellitus with hypoglycemia without coma; I73.9 Peripheral vascular disease, unspecified; E46 Unspecified protein-calorie malnutrition; I50.9 Heart failure, unspecified; F12.90 Cannabis use, unspecified, uncomplicated; F15.90 Other stimulant use, unspecified, uncomplicated; F17.210 Nicotine dependence, cigarettes, uncomplicated; Z68.22 Body mass index [BMI] 22.0-22.9, adult; Z20.822 Contact with and (suspected) exposure to COVID-19
CPT/HCPCS: 36415; 71045; 80053; 80307; 82962; 83605; 83690; 83880; 84484; 85025; 87040; 87426; 93005; 96365; 96367; 96372; 99291; J1335; J1644; J1956; J7050; G0378